=== PATIENT | male | born 1960 | race Caucasian/White ===

== ENCOUNTER 2019-10-31 15:49 | Emergency (ER) | payer BC ==
[2019-10-31 16:52] LABS: ABS Lymphocytes 0.5 10^3/ul (1.0-4.8); ABS Monocytes 0.3 10^3/ul (0-0.8); ABS Neutrophils 2.7 10^3/ul (1.5-7.7); Hematocrit 46 % (42-52); Hemoglobin 16.4 g/dL (14.0-18.0); INR 1.15 (0.82-1.09); Lymphocyte % 14.5 %; Mean Corpuscular HGB Conc 36 g/dL (31-36); Mean Corpuscular Hemoglobin 32 pg (27-31); Mean Corpuscular Volume 89 fL (80-94); Mean Platelet Volume 7.8 fL (7.4-10.4); Nucleated Red Blood Cells % 0.1; Platelet Count 169 10^3/uL (150-450); Red Blood Count 5.15 10^6 /uL (4.18-5.48); Red Cell Distribution Width 13 % (10-15); White Blood Count 3.5 10^3/uL (3.5-10.8)
[2019-10-31 17:08] LABS: Albumin 4.2 g/dL (3.2-5.2); Albumin/Globulin Ratio 1.4 (1-3); BUN/Creatinine Ratio 9.6 (8-20); EGFR African American 78.5 (>60); EGFR Non-African American 64.9 (>60); Potassium 3.9 mmol/L (3.5-5.0); Total Bilirubin 0.8 mg/dL (0.2-1.0); Total Protein 7.2 g/dL (6.4-8.9)
[2019-10-31 17:10] LABS: Troponin I 0.02 ng/mL (<0.03)
[2019-10-31] MEDS ORDERED: Ketorolac INJ* 30 MG/ML 1 ML VIAL IV ONE (19:06)
[2019-10-31] MEDS ORDERED: NS 0.9% 1000 ML** 1,000 ML IV ONE (19:06)
[2019-10-31] MEDS ORDERED: Ondansetron INJ* 2 MG/ML VIAL IV ONE (19:06)
[2019-10-31] MEDS ORDERED: Aspirin 81 mg CHEW TAB* 81 MG TAB.CHEW PO ONE (19:06)
--- NOTE | 2019-10-31 19:38 | ED ---
Complex/Multi-Sys Presentation - HPI Summary HPI Summary: Patient is a 58 y/o M presenting to [facility] with complaints of left sided chest pain, SOB, right sided headache that is described as a throbbing sensation, joint pain, and increased fatigued. Exertion is noted to aggravate SOB and chest pain. He states that he began to "fell unwell" on 2018. Sinus pressure and decreased appetite for the past few days are noted as well. Subjective fever, chills and hot flashes are reported. 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 Some cough is noted since yesterday. Nausea and groin pain are endorsed as well, patient denies urinary Sx, abdominal pain, vomiting and diarrhea. He states that he had PNA years ago and states that his Sx are similar to this previous episode. On triage, pain is rated 8/10, nothing is noted to aggravate/alleviate Sx. Hx of IBS, arthritis stated. PSHx of left shoulder replacement surgery, menicus repair surgery, basal cell carinoma removal around noted. Patient's last stress test was "a long long time ago". He denies tobacco, alcohol and substance usage. Home medications and allergies are reviewed. Vitals in room are pulse 96, o2 96 on RA, and BP 139/97. - History Of Current Complaint Chief Complaint: EDGeneral Time Seen by Provider: 10/31/19 19:09 Hx Obtained From: Patient Onset/Duration: Lasting Days, Still Present Timing: Constant, Days Severity Currently: Severe - 8/10 Location: Pain At: - chest pain, PFEIFFER, joint pain, groin pain Character: Throbbing - PFEIFFER Aggravating Factor(s): Exertion Alleviating Factor(s): nothing Associated Signs And Symptoms: Positive: Weakness - fatigue with exertion, Headache, SOB, Cough, Chest Pain, Nausea, Fever - subjective, Other - positive - joint pain, sinus pressure, decreased appetite, chills, hot flashes, groin pain; negative - urinary Sx. Negative: Vomiting, Diarrhea, Abdominal Pain - Allergies/Home Medications Allergies/Adverse Reactions: Allergies Allergy/AdvReac Type Severity Reaction Status Date / Time levofloxacin Allergy Rash Verified 10/31/19 16:00 Penicillins Allergy Airway Verified 10/31/19 16:00 Obstruction PMH/Surg Hx/FS Hx/Imm Hx Endocrine/Hematology History: Denies: Hx Diabetes, Hx Thyroid Disease Cardiovascular History: Denies: Hx Hypertension, Hx Pacemaker/ICD Respiratory History: Reports: Other Respiratory Problems/Disorders - PNUEMONIA Denies: Hx Asthma, Hx Chronic Obstructive Pulmonary Disease (COPD) GI History: Denies: Hx Ulcer Sensory History: Denies: Hx Hearing Aid Psychiatric History: Reports: Hx Panic Disorder - Cancer History Cancer Type, Location and Year: BASIL CELL ON SHOULDER - Surgical History Surgery Procedure, Year, and Place: BASIL CELL REMOVED FROM LEFT SHOULDER BLADE 10 YRS AGO Infectious Disease History: No Infectious Disease History: Denies: Hx Hepatitis, Hx Human Immunodeficiency Virus (HIV), Traveled Outside the [place] in Last 30 Days - Family History Known Family History: Negative: Cardiac Disease, Hypertension, Diabetes - Social History Alcohol Use: None Substance Use Type: Reports: None Hx Tobacco Use: No Smoking Status (MU): Never Smoked Tobacco Review of Systems Positive: Fever, Chills, Fatigue ENT: Other - positive - sinus pressure Positive: Chest Pain Positive: Shortness Of Breath, Cough Gastrointestinal: Other - positive - decreased appetite Positive: Nausea. Negative: Abdominal Pain, Vomiting, Diarrhea Positive: no symptoms reported - no urinary Sx reported , pain - groin Positive: Arthralgia Positive: Headache All Other Systems Reviewed And Are Negative: Yes Physical Exam - Summary Physical Exam Summary: General: Well-developed, Well-nourished Male. No acute distress. HEENT: Normocephalic, Atraumatic. Eyes: Conjuctiva normal, PERRL. Ears: TMs within normal limits. Nares: (-) discharge, (-) erythema. Oropharynx: Clear, mucous membranes moist, (-) exudates. Neck: Soft, FROM, (-) lymphadenopathy, (-) thyromegaly, (-) JVD. Cardiovascular: Normal sinus rhythm, (-) murmur. Lungs: Clear to auscultation bilaterally (-) wheezes, (-) rales, (-) rhonchi. Abdomen: Soft, non-tender, non-distended, (-) organomegaly, normal bowel sounds. Back: (-) CVA tenderness Extremities: No edema. Skin: Warm, dry, (-) rash. Neuro: Alert and oriented x3, no focal deficits. Psychiatric: Mood normal, affect normal. Triage Information Reviewed: Yes Vital Signs On Initial Exam: Initial Vitals Temp Pulse Resp BP Pulse Ox 99.3 F 117 20 165/101 99 10/31/19 15:55 10/31/19 15:55 10/31/19 15:55 10/31/19 15:55 10/31/19 15:55 Vital Signs Reviewed: Yes Procedures - Sedation Patient Received Moderate/Deep Sedation with Procedure: No Diagnostics - Vital Signs Vital Signs Temp Pulse Resp BP Pulse Ox 10/31/19 18:57 101.2 F 10/31/19 18:28 92 14 140/94 94 10/31/19 18:00 94 7 96 10/31/19 17:58 92 15 152/94 97 10/31/19 17:57 96 10 98 10/31/19 15:55 99.3 F 117 20 165/101 99 - Laboratory Lab Results: Lab Results 10/31/19 10/31/19 10/31/19 Range/Units 16:29 16:29 16:29 WBC 3.5 (3.5-10.8) 10^3/uL RBC 5.15 (4.18-5.48) 10^6 /uL Hgb 16.4 (14.0-18.0) g/dL Hct 46 (42-52) % MCV 89 (80-94) fL MCH 32 H (27-31) pg MCHC 36 (31-36) g/dL RDW 13 (10-15) % Plt Count 169 (150-450) 10^3/uL MPV 7.8 (7.4-10.4) fL Neut % (Auto) 77.3 % Lymph % (Auto) 14.5 % Graham % (Auto) 7.7 % Eos % (Auto) 0.0 % Baso % (Auto) 0.5 % Absolute Neuts (auto) 2.7 (1.5-7.7) 10^3/ul Absolute Lymphs (auto) 0.5 L (1.0-4.8) 10^3/ul Absolute Monos (auto) 0.3 (0-0.8) 10^3/ul Absolute Eos (auto) 0.0 (0-0.6) 10^3/ul Absolute Basos (auto) 0.0 (0-0.2) 10^3/ul Absolute Nucleated RBC 0.0 10^3/ul Nucleated RBC % 0.1 INR (Anticoag Therapy) 1.15 H (0.82-1.09) Sodium 130 L (135-145) mmol/L Potassium 3.9 (3.5-5.0) mmol/L Chloride 98 L (101-111) mmol/L Carbon Dioxide 24 (22-32) mmol/L Anion Gap 8 (2-11) mmol/L BUN 11 (6-24) mg/dL Creatinine 1.15 (0.67-1.17) mg/dL Est GFR ( Amer) 78.5 (>60) Est GFR (Non-Af Amer) 64.9 (>60) BUN/Creatinine Ratio 9.6 (8-20) Glucose 116 H (70-100) mg/dL Calcium 9.0 (8.6-10.3) mg/dL Total Bilirubin 0.80 (0.2-1.0) mg/dL AST 25 (13-39) U/L ALT 27 (7-52) U/L Alkaline Phosphatase 42 (34-104) U/L Troponin I 0.02 (<0.03) ng/mL Total Protein 7.2 (6.4-8.9) g/dL Albumin 4.2 (3.2-5.2) g/dL Globulin 3.0 (2-4) g/dL Albumin/Globulin Ratio 1.4 (1-3) 10/31/19 Range/Units 18:52 WBC (3.5-10.8) 10^3/uL RBC (4.18-5.48) 10^6 /uL Hgb (14.0-18.0) g/dL Hct (42-52) % MCV (80-94) fL MCH (27-31) pg MCHC (31-36) g/dL RDW (10-15) % Plt Count (150-450) 10^3/uL MPV (7.4-10.4) fL Neut % (Auto) % Lymph % (Auto) % Graham % (Auto) % Eos % (Auto) % Baso % (Auto) % Absolute Neuts (auto) (1.5-7.7) 10^3/ul Absolute Lymphs (auto) (1.0-4.8) 10^3/ul Absolute Monos (auto) (0-0.8) 10^3/ul Absolute Eos (auto) (0-0.6) 10^3/ul Absolute Basos (auto) (0-0.2) 10^3/ul Absolute Nucleated RBC 10^3/ul Nucleated RBC % INR (Anticoag Therapy) (0.82-1.09) Sodium (135-145) mmol/L Potassium (3.5-5.0) mmol/L Chloride (101-111) mmol/L Carbon Dioxide (22-32) mmol/L Anion Gap (2-11) mmol/L BUN (6-24) mg/dL Creatinine (0.67-1.17) mg/dL Est GFR ( Amer) (>60) Est GFR (Non-Af Amer) (>60) BUN/Creatinine Ratio (8-20) Glucose (70-100) mg/dL Calcium (8.6-10.3) mg/dL Total Bilirubin (0.2-1.0) mg/dL AST (13-39) U/L ALT (7-52) U/L Alkaline Phosphatase (34-104) U/L Troponin I 0.01 (<0.03) ng/mL Total Protein (6.4-8.9) g/dL Albumin (3.2-5.2) g/dL Globulin (2-4) g/dL Albumin/Globulin Ratio (1-3) Result Diagrams: 10/31/19 16:29 10/31/19 16:29 Lab Statement: Any lab studies that have been ordered have been reviewed, and results considered in the medical decision making process. - Radiology CXR Radiology Interpretation Completed By: ED Physician Summary of Radiographic Findings: No acute changes, no pleural effusion, no obvious infiltrate, pending official report. - CT CTA CHEST CT Interpretation Completed By: Radiologist Summary of CT Findings: IMPRESSION: No pulmonary emboli. No additional findings to correlate with patient's. symptomatology. THIS REPORT WAS REVIEWED BY DR. GARZA. - EKG 1552 Cardiac Rate: NL - rate of 94 BPM EKG Rhythm: Sinus Rhythm Summary of EKG Findings: EKG showed NSR with rate of 94 BPM, no STEMI. This EKG was reviewed and interpreted by ED physician. Re-Evaluation - Re-Evaluation First Eval Re-Evaluation Time: 23:52 Comment: Results of workup were discussed with the patient, patient was discharged to home and will follow up with PCP for stress test. Complex Multi-Symp Course/Dx Course Of Treatment: 58 y/o M presents with exertional chest pain and SOB. He additionally notes with four day history of severe fatigue, joint pain and PFEIFFER. Intermittent fevers noted. Patient with decreased appetite and PO intake. Workup demonstrates troponins of 0.01 and 0.02, no EKG changes. Discussed with hospitalist, who strongly recommended outpatient stress test. He will follow up with PCP for this. Other Sx consistent with viral syndrome. Patient advised to rest, drinks fluids, and take ibuprofen. He was discharged to home and will follow up with PCP and return to ED for any worsening or new Sx. During ED course, patient received fluids, Zofran 4 mg IV, Toradol 15 mg IV, and ASA 324 mg PO. - Diagnoses Provider Diagnoses: Exertional chest pain, Joint pain, Fatigue - Physician Notifications Discussed Care Of Patient With: Tao Khan Time Discussed With Above Provider: 22:58 Instructed by Provider To: Other - Patient's case was discussed with Dr. Khan, he recommends awaiting for third trop on patient and possible follow up with PCP for outpatient cardiac stress test. Discharge ED - Sign-Out/Discharge Documenting (check all that apply): Patient Departure - discharge - Discharge Plan Condition: Stable Disposition: HOME Patient Education Materials: Chest Pain (ED), Arthralgia (ED), Fatigue (ED) Referrals: [facility] [Outside] Additional Instructions: CALL YOUR PRIMARY CARE PHYSICIAN IN THE MORNING TO DISCUSS STRESS TEST. PLEASE RETURN TO ED FOR ANY NEW OR WORSENING SYMPTOMS. - Billing Disposition and Condition Condition: STABLE Disposition: Home - Attestation Statements Document Initiated by Nancy: Yes Documenting Scribe: JENNIFER ALVAREZ Provider For Whom Nancy is Documenting (Include Credential): CANDIE GARZA MD Scribe Attestation: I, JENNIFER ALVAREZ, scribed for CANDIE GARZA MD on 11/01/19 at 0338. Scribe Documentation Reviewed: Yes Provider Attestation: The documentation as recorded by the JENNIFER monteiro accurately reflects the service I personally performed and the decisions made by me, CANDIE GARZA MD Status of Scribe Document: Viewed
[2019-10-31 20:02] LABS: INR 1.15 (0.82-1.09)
[2019-10-31] MEDS ORDERED: Iohexol 350* (CONTRAST) 500 ML MDV IV ONE (21:13)
[2019-10-31 21:22] LABS: Erythrocyte Sed Rate 11 mm/Hr (0-19)
[2019-10-31 23:17] LABS: Influenza A Molecular NEGATIVE (Negative); Influenza B Molecular NEGATIVE (Negative)
[2019-11-01 00:27] VITALS: BP 152/85
[2019-11-02 18:06] LABS: B garinii/B afzelii PCR Negative (Negative); B mayonii PCR Negative (Negative)
== END 2019-11-01 00:25 | disposition home or self-care (01) ==
LOC: ED 15:49
DX: R07.89 Other chest pain (principal); M25.50 Pain in unspecified joint; I51.7 Cardiomegaly; R53.83 Other fatigue; R06.02 Shortness of breath; R51 Headache; R11.0 Nausea; Z96.612 Presence of left artificial shoulder joint; Z88.1 Allergy status to other antibiotic agents; Z88.0 Allergy status to penicillin
CPT/HCPCS: 36415; 71045; 71275; 80053; 83605; 83880; 84443; 84484; 85025; 85379; 85610; 85652; 87476; 87798; 93005; 96361; 96374; 96375; 99283; A9270-GY; J1885; J2405; Q9967